=== PATIENT | female | born 1990 | race Caucasian/White ===

== ENCOUNTER 2022-02-14 17:07 | Emergency (ER) | payer OTHER ==
[~2022-02-14] VITALS: Ht 185.4 cm; Wt 81.6 kg
[2022-02-14 17:13] VITALS: BP 117/74
--- NOTE | 2022-02-14 17:28 | NUR ---
BIBS FOR FEVER AND HEADACHE 03/08 SINCE YESTERDAY. IN ROOM AIR AND DENIES SOB. RESPIRATION REGULAR AND UNLABORED. WILL CONTINUE TO MONITOR THE PATIENT.
--- NOTE | 2022-02-14 18:23 | NUR ---
RAPID INFLUENZA AND COVID ANTIGEN SWABS DONE AND SENT TO THE LAB.
--- NOTE | 2022-02-14 18:41 | NUR ---
Patient discharged to home in stable condition. Written and verbal after care instructions given. Patient verbalizes understanding of instruction.
== END 2022-02-14 18:41 | disposition home or self-care (01) ==
LOC: ER 17:13 → EDSEX 17:13 → ER 18:41
DX: U07.1 COVID-19 (principal); R51.9 Headache, unspecified
CPT/HCPCS: 87426; 99283; C9803